=== PATIENT | female | born 1960 | race Caucasian/White ===

== ENCOUNTER 2023-06-27 15:11 | Emergency (ER) | payer BC, SELFPAY ==
[2023-06-27] VITALS (11 sets, daily range): BP systolic 118–164; BP diastolic 67–95; PULSE 68–85; RESP 20; TEMP 36.8; O2SAT 95–100; BMI 25.9
--- NOTE | 2023-06-27 15:46 | CRLHL7_ITS ---
For Patients: As a result of the Cures Act, medical imaging exams and procedure reports are released immediately into your electronic medical record. You may view this report before your referring provider. If you have questions, please contact your health care provider. Indication: Shortness of breath Comparison: None available. Technique: PA and lateral views of the chest Findings: There is no focal consolidation, effusion, or pneumothorax. The cardiomediastinal silhouette is within normal limits. The bony thorax is grossly intact. Impression: No acute cardiopulmonary abnormality. Dictated by David Nixon MD @ 06/27/2023 5:22:40 PM (Electronically Signed)
--- NOTE | 2023-06-27 15:58 | ED.GENADULT ---
HPI - General Adult General Chief complaint: Shortness of Breath/Dyspnea Stated complaint: Heavy chest, difficulty breathing-new Rx also Time Seen by Provider: 06/27/23 15:40 Source: patient Mode of arrival: ambulatory Limitations: no limitations History of Present Illness HPI narrative: Patient is a 63-year-old female coming into the ER with several concerns. 1. She would like ?better pain management for her dog bite that she sustained yesterday. She was given acetaminophen and she is also taking ibuprofen, nothing is helping. 2. Patient has chronic neck and back of the head pain: She tells me that she has stenosis and a ?slippy disc?. She tells me that she does not use any pain medication for this but she is requesting some today. She states that her pain has been worse over the last 2 weeks. She denies any new trauma. Pain is located in the back and head and goes down the neck, no new location of her pain just increased intensity. Lastly patient states that she also started having difficulty breathing this morning. She complains of a pressure in the center of her chest and difficulty taking deep breaths. She has a mild cough that comes and goes. She does have a history of COPD, uses an albuterol inhaler. Took her inhaler about an hour ago and she felt like it did not really help her much. Nothing seems to make it worse. It is not associated with moving or physical activity. She states that being here makes her feel better. Patient does smoke 10 cigarettes per day. Related Data Home Medications Medication Instructions Recorded Confirmed albuterol sulfate 90 mcg/actuation inhalation 07/06/22 07/06/22 aerosol inhaler buspirone 10 mg tablet 10 mg PO 07/06/22 07/06/22 cyclosporine 0.05 % eye drops in a drp ophthalmic (eye) 07/06/22 07/06/22 dropperette (Restasis) hydrocortisone 2.5 % topical cream g topical 07/06/22 07/06/22 hydroxyzine HCl 25 mg tablet 25 mg PO 07/06/22 07/06/22 levothyroxine 125 mcg tablet 125 mcg PO 07/06/22 07/06/22 lorazepam 0.5 mg tablet 0.5 mg PO 07/06/22 07/06/22 tacrolimus 0.1 % topical ointment topical 07/06/22 07/06/22 trazodone 50 mg tablet 50 mg PO 07/06/22 07/06/22 venlafaxine 75 mg capsule,extended mg PO 07/06/22 07/06/22 release 24 hr Allergies Allergy/AdvReac Type Severity Reaction Status Date / Time Cephalosporins Allergy Rash Verified 07/06/22 09:11 penicillin V Allergy Rash Verified 07/06/22 09:11 Sulfa (Sulfonamide Allergy Verified 07/06/22 09:11 Antibiotics) caress body soap Allergy Uncoded 07/06/22 09:11 Review of Systems Status of ROS: Reports: 10 or more systems reviewed and unremarkable except as noted in History and below [facility] Medical History Vitiligo ?L80 - Vitiligo (ICD-10) Low back pain ?M54.50 - Low back pain, unspecified (ICD-10) Asthma ?J45.909 - Unspecified asthma, uncomplicated (ICD-10) Carpal tunnel syndrome ?G56.00 - Carpal tunnel syndrome, unspecified upper limb (ICD-10) Hypertension ?I10 - Essential (primary) hypertension (ICD-10) Sleep apnea ?G47.30 - Sleep apnea, unspecified (ICD-10) Hypothyroid ?E03.9 - Hypothyroidism, unspecified (ICD-10) Surgical History H/O eye surgery ?Z98.890 - Other specified postprocedural states (ICD-10) History of carpal tunnel surgery of right wrist (11/02/16) ?Z98.890 - Other specified postprocedural states (ICD-10) Status post arthroscopy of right shoulder (11/02/16) ?Z98.890 - Other specified postprocedural states (ICD-10) History of carpal tunnel surgery of left wrist (06/07/17) ?Z98.890 - Other specified postprocedural states (ICD-10) Social History Smoking Status: Current every day smoker What tobacco products do you use: cigarettes Smoking packs per day: 5 Smoking cigarettes per day: 100.0 Do you use any of these nicotine containing products: None Second hand tobacco smoke exposure: Yes How often do you have a drink containing alcohol: monthly or less How often do you have six or more drinks on one occasion: Never AUDIT-C Alcohol total score: 1 Non-prescribed substance use: denies use service: No Exam Narrative: Exam Narrative: Well-nourished well-developed patient in no acute distress. Alert and oriented. Answers questions appropriately. Mood and affect are appropriate. Thoughts are goal oriented and rational. No tangential or magical thinking noted. Patient speaks in full sentences without needing to catch her breath. HEENT: Normocephalic atraumatic. Pupils are equally round reactive to light. Extraocular muscles are intact. Conjunctivae are moist without any icterus noted. Moist mucous membranes. Posterior pharynx is normal. Neck is soft without any lymphadenopathy or thyromegaly. No masses are appreciated. Neck is normal appearance. She has no acute tenderness palpation of the cervical spine. Cardiovascular: Heart is regular rate and rhythm S1 and S2 are present without any murmurs. Lungs: Clear to auscultation bilaterally no wheezes rhonchi or rales are appreciated. Patient takes deep breaths without any discomfort. Abdomen: Soft and nontender nondistended with normal bowel sounds. No guarding or rebound. No masses or organomegaly appreciated. Extremities: Bilateral lower extremities are without edema. Normal DP and PT pulses. Skin: Warm dry and intact. Patient does have a dog bite on the posterior right knee. She has stitches in place and 2 of the other puncture wounds are scabbed over. Const: Vital Signs, click to edit/add: Vital Signs - 24 hr 06/27/23 15:20 06/27/23 15:37 06/27/23 15:45 Temperature 98.3 F Pulse Rate 80 79 Pulse Rate [Pulse Oximeter] 85 Respiratory Rate 20 Blood Pressure Blood Pressure [Le ft Upper Arm] 164/95 H Pulse Oximetry 95 97 100 Oxygen Delivery Me thod Room Air 06/27/23 16:01 06/27/23 16:02 06/27/23 16:40 Temperature Pulse Rate 73 82 70 Pulse Rate [Pulse Oximeter] Respiratory Rate Blood Pressure 128/75 Blood Pressure [Le ft Upper Arm] Pulse Oximetry 98 99 98 Oxygen Delivery Me thod 06/27/23 16:45 06/27/23 17:00 06/27/23 17:32 Temperature Pulse Rate 68 71 Pulse Rate [Pulse Oximeter] Respiratory Rate Blood Pressure 118/95 H Blood Pressure [Le ft Upper Arm] Pulse Oximetry 100 97 Oxygen Delivery Me thod 06/27/23 18:04 06/27/23 18:31 Temperature Pulse Rate Pulse Rate [Pulse Oximeter] Respiratory Rate Blood Pressure 133/74 126/67 Blood Pressure [Le ft Upper Arm] Pulse Oximetry Oxygen Delivery Me thod Course Course ED Course: EKG, read by me, shows normal sinus rhythm with a pulse of 86. Troponin is normal. Chest x-ray, read by me, does not show any acute pathology. Lab work is unremarkable aside from a slightly elevated D-dimer 0.63. Because of this we did proceed with a chest CT PE protocol which was negative for PE, does show emphysema. Patient is relieved to hear this. And she is however very concerned about her continued neck and back pain. She is requesting oxycodone. I did look the patient up on the [place] pharmacy monitoring website, she does get lorazepam regularly but no narcotic pain medication. She gets 30 tablets every 2-3 months. We discussed at length today that she cannot mix these 2 medications together. Patient assures me that she will not. Vital Signs Vital signs: Initial Vital Signs Temperature 98.3 F 06/27/23 15:20 Temperature Source Temporal Artery Scan 06/27/23 15:20 Pulse Rate 85 06/27/23 15:20 Pulse Rhythm Regular 06/27/23 15:20 Respiratory Rate 20 06/27/23 15:20 Blood Pressure 164/95 H 06/27/23 15:20 Blood Pressure Mean 118 H 06/27/23 15:20 Blood Pressure Position Supine 06/27/23 15:20 Pulse Oximetry 95 06/27/23 15:20 Oxygen Delivery Method Room Air 06/27/23 15:20 Vital Signs Temperature 98.3 F 06/27/23 15:20 Pulse Rate 85 06/27/23 15:20 Respiratory Rate 20 06/27/23 15:20 Blood Pressure 164/95 H 06/27/23 15:20 Pulse Oximetry 95 06/27/23 15:20 Oxygen Delivery Method Room Air 06/27/23 15:20 Temperature 98.3 F 06/27/23 15:20 Pulse Rate 71 06/27/23 17:00 Respiratory Rate 20 06/27/23 15:20 Blood Pressure 126/67 06/27/23 18:31 Pulse Oximetry 97 06/27/23 17:00 Oxygen Delivery Method Room Air 06/27/23 15:20 Medical Decision Making MDM Narrative Medical decision making narrative: 63-year-old female with episode of difficulty breathing and chest pressure now asymptomatic. Workup today was entirely normal. I do recommend she follow up with primary care provider for further management. 2. Chronic neck and head pain. Patient states that she has to make an appointment with the spine clinic for a follow-up. She will receive 8 tablets of oxycodone today. Medical Records Medical records reviewed: Yes I reviewed the patient's medical records Lab Data Lab results reviewed: Yes I reviewed the patient's lab results Labs: Lab Results 06/27/23 06/27/23 06/27/23 Range/Units 15:47 16:07 16:07 WBC 6.59 (4.50-11.00) K/uL RBC 4.04 (4.00-5.20) m/uL Hgb 12.6 (12.0-16.0) gm/dL Hct 38.1 (33.0-51.0) % MCV 94 (80-100) fL MCH 31 (26-34) pg MCHC 33 (32-36) gm/dL RDW Coeff of Asim 12.0 (11.5-15.5) % Plt Count 271 (140-440) K/uL Neut % (Auto) 49.9 (42.0-72.0) % Lymph % (Auto) 39.2 (20-44) % Whitley % (Auto) 9.0 (0.0-11.0) % Eos % (Auto) 1.2 (0.0-7.0) % Baso % (Auto) 0.5 (0.0-3.0) % Neut # (Auto) 3.30 (1.7-7.0) K/uL Lymph # (Auto) 2.58 (0.90-2.90) K/uL Whitley # (Auto) 0.60 (0.00-0.90) K/UL Eos # (Auto) 0.08 (0.00-0.50) K/uL Baso # (Auto) 0.03 (0.00-0.30) K/uL Abs Immat Gran (auto) 0.01 (0.00-0.30) K/uL Imm/Tot Granulo (auto) 0.2 % ESR 23 H (2-20) mm/hr D-Dimer Quant (PE/DVT) 0.61 H (0.00-0.50) ug/ml Sodium 140 (135-149) mmol/L Potassium 3.5 L (3.6-5.1) mmol/L Chloride 102 (96-114) mmol/L Carbon Dioxide 26 (20-32) mmol/L Anion Gap 12 (7-15) mEq/L BUN 12 (7-30) mg/dL Creatinine 0.7 (0.5-1.5) mg/dL Estimated Creat Clear 46.40 Estimated GFR 96 ml/min Glucose 103 (60-115) mg/dL Lactate 0.8 (0.5-1.9) mmol/L Calcium 9.2 (8.4-10.6) mg/dL Magnesium 2.1 (1.5-2.6) mg/dL Total Bilirubin 1.0 (0.1-1.5) mg/dL Direct Bilirubin 0.0 (0.0-0.5) mg/dL AST 35 (12-35) U/L ALT 25 (4-35) U/L Alkaline Phosphatase 80 (40-150) U/L Troponin I < 0.01 L Cancelled (0.01-0.04) ng/mL C-Reactive Protein 0.5 (0.5-1.0) mg/dL Total Protein 7.5 (6.0-8.3) g/dL Albumin 4.5 (3.3-5.0) g/dL SARS-CoV-2 (PCR) Negative SARS-CoV-2 (Negative) Influenza Type A (PCR) Negative PCR FLU A (Negative) Influenza Type B (PCR) Negative PCR FLU B (Negative) RSV (PCR) Negative PCR RSV (Negative) POC Troponin I 0.01 (0.01-0.04) ng/ml Imaging Data CT scan - chest: Attestation: I have reviewed the pertinent imaging results. Radiologist's impression: TECHNIQUE: CT chest with i.v. contrast using pulmonary angiographic technique. Coronal and sagittal reformats were obtained. CONTRAST: 95 mL Isovue 370 COMPARISON: None FINDINGS: Cardiovascular: The pulmonary arteries are unremarkable in enhancement with no evidence of acute pulmonary embolism. The heart has an unremarkable appearance and size. No sign of aneurysm in the thoracic aorta. Mediastinum: No mass or adenopathy seen. Lung: Moderate centrilobular emphysema seen within the right upper lobe and mild centrilobular emphysema seen in the left upper lobe. Pleura and pericardium: No sign of pleural effusion seen. No significant pericardial effusion is present. Chest wall and axilla: No mass or adenopathy seen. Bone: Unremarkable for age. Upper abdomen: Unremarkable. IMPRESSION: 1. No CT evidence of acute pulmonary emboli seen. Chest x-ray: Attestation: I have reviewed the pertinent imaging results. Radiologist's impression: Technique: PA and lateral views of the chest Findings: There is no focal consolidation, effusion, or pneumothorax. The cardiomediastinal silhouette is within normal limits. The bony thorax is grossly intact. Impression: No acute cardiopulmonary abnormality. ECG Data Attestation: I personally reviewed and interpreted this ECG as follows: Discharge Plan Discharge Clinical Impression: Headache, Atypical chest pain, Neck pain Patient Disposition: Home, Self-Care Condition: Stable Additional Instructions: Your workup today did not show any acute cause of your chest pressure or shortness of breath that you had earlier today. I do recommend you follow-up with your primary care provider this coming week for a checkup and further management. As far as your head and neck pain you will be sent home with 8 tablets of oxycodone today. There is Tylenol in these medications, you should not take more than a combined total of 3,000 mg of acetaminophen, also known as Tylenol, in a 24 hour period. Narcotic pain medications, like the once you are getting today can cause constipation and dizziness with increased risk of fall. Be very careful when taking his medications and under no circumstances should do mix this medication with your lorazepam like we discussed today. Pain medications sent to [facility]. Prescriptions: No Action cyclosporine [Restasis] 0.05 % dropperette ophthalmic (eye) Patient Comments: Instill 1 drop both eyes morning and night levothyroxine 125 mcg tablet 125 mcg PO Patient Comments: Take 1 Tablet (125 mcg) by mouth before breakfast. lorazepam 0.5 mg tablet 0.5 mg PO Patient Comments: TAKE ONE TABLET BY MOUTH DAILY NEEDED FOR ANXIETY, MUST LAST 30 DAYS trazodone 50 mg tablet 50 mg PO Patient Comments: Take 0.5 Tablet (25 mg) by mouth at bedtime if needed for Sleep. venlafaxine 75 mg capsule,extended release 24hr PO Patient Comments: TAKE 1 CAPSULE BY MOUTH ONE TIME DAILY albuterol sulfate 90 mcg/actuation HFA aerosol inhaler inhalation Patient Comments: INHALE ONE OR TWO PUFFS BY MOUTH EVERY FOUR HOURS WHILE AWAKE hydroxyzine HCl 25 mg tablet 25 mg PO Patient Comments: TAKE ONE TABLET BY MOUTH EVERY SIX HOURS NEEDED FOR FOR ITCHING tacrolimus 0.1 % ointment topical Patient Comments: apply topically to the face twice daily hydrocortisone 2.5 % cream topical buspirone 10 mg tablet 10 mg PO Patient Comments: TAKE 1 TABLET BY MOUTH TWICE DAILY Follow Up/Referrals: Claudia Joe DO [Primary Care Provider] - [facility] Alone [facility]
[2023-06-27 16:25] LABS: Lactate* 0.8 mmol/L (0.5-1.9)
[2023-06-27 16:29] LABS: Basophils Absolute Auto 0.03 K/uL (0.00-0.30); Basophils Percent Auto 0.5 % (0.0-3.0); Eosinophils Absolute Auto 0.08 K/uL (0.00-0.50); Eosinophils Percent Auto 1.2 % (0.0-7.0); Hematocrit 38.1 % (33.0-51.0); Hemoglobin* 12.6 gm/dL (12.0-16.0); Immature Granulocytes Abs Auto 0.01 K/uL (0.00-0.30); Immature Granulocytes Pct Auto 0.2 %; Lymphocytes Absolute Auto 2.58 K/uL (0.90-2.90); Lymphocytes Percent Auto 39.2 % (20-44); Mean Corpuscular HGB Conc 33 gm/dL (32-36); Mean Corpuscular Hemoglobin 31 pg (26-34); Mean Corpuscular Volume 94 fL (80-100); Neutrophils Percent Auto 49.9 % (42.0-72.0); Platelet Count* 271 K/uL (140-440); Red Blood Count 4.04 m/uL (4.00-5.20); White Blood Count* 6.59 K/uL (4.50-11.00)
[2023-06-27 16:29] LABS: Troponin, Point-of-Care* 0.01 ng/ml (0.01-0.04)
[2023-06-27 16:34] LABS: Slide Review Reflex No
[2023-06-27] MEDS: IPRAT-ALBUT 0.5-2.5 MG/3 ML NEB 1 NEB IH (16:44)
[2023-06-27 16:52] LABS: Albumin* 4.5 g/dL (3.3-5.0); Chloride* 102 mmol/L (96-114); Potassium* 3.5 mmol/L (3.6-5.1); Sodium* 140 mmol/L (135-149)
[2023-06-27 16:54] LABS: Creatinine* 0.7 mg/dL (0.5-1.5); Estimated Glomerular Filt Rate 96 ml/min
[2023-06-27 16:55] LABS: Alanine Aminotransferase* 25 U/L (4-35); Alkaline Phosphatase* 80 U/L (40-150); Anion Gap 12 mEq/L (7-15); Aspartate Amino Transferase* 35 U/L (12-35); Blood Urea Nitrogen* 12 mg/dL (7-30); Calcium* 9.2 mg/dL (8.4-10.6); Carbon Dioxide* 26 mmol/L (20-32); Glucose* 103 mg/dL (60-115); Total Protein* 7.5 g/dL (6.0-8.3)
[2023-06-27 16:56] LABS: Magnesium* 2.1 mg/dL (1.5-2.6)
[2023-06-27 16:58] LABS: C Reactive Protein* 0.5 mg/dL (0.5-1.0)
[2023-06-27] MEDS: KETOROLAC 30 MG/ML inj IVP (17:00)
[2023-06-27 17:07] LABS: D Dimer Quantitative* 0.61 ug/ml (0.00-0.50)
[2023-06-27 17:08] LABS: Troponin I* < 0.01 ng/mL (0.01-0.04)
[2023-06-27 17:18] LABS: PCR FLU A Negative PCR FLU A (Negative); PCR FLU B Negative PCR FLU B (Negative); PCR RSV Negative PCR RSV (Negative)
[2023-06-27 17:20] LABS: SARS PCR* Negative SARS-CoV-2 (Negative)
[2023-06-27 17:22] LABS: Erythrocyte SedimentationRate* 23 mm/hr (2-20)
--- NOTE | 2023-06-27 17:30 | CRLHL7_ITS ---
For Patients: As a result of the Century Cures Act, medical imaging exams and procedure reports are released immediately into your electronic medical record. You may view this report before your referring provider. If you have questions, please contact your health care provider. INDICATION: Chest pain TECHNIQUE: CT chest with i.v. contrast using pulmonary angiographic technique. Coronal and sagittal reformats were obtained. CONTRAST: 95 mL Isovue 370 COMPARISON: None FINDINGS: Cardiovascular: The pulmonary arteries are unremarkable in enhancement with no evidence of acute pulmonary embolism. The heart has an unremarkable appearance and size. No sign of aneurysm in the thoracic aorta. Mediastinum: No mass or adenopathy seen. Lung: Moderate centrilobular emphysema seen within the right upper lobe and mild centrilobular emphysema seen in the left upper lobe. Pleura and pericardium: No sign of pleural effusion seen. No significant pericardial effusion is present. Chest wall and axilla: No mass or adenopathy seen. Bone: Unremarkable for age. Upper abdomen: Unremarkable. IMPRESSION: 1. No CT evidence of acute pulmonary emboli seen. Dictated by Jesus Gant MD @ 06/27/2023 6:48:58 PM Please note that all CT scans at this facility use dose modulation, iterative reconstruction, and/or weight-based dosing when appropriate to reduce radiation dose to as low as reasonably achievable. Dictated by: Jesus Gant MD @ 06/27/2023 18:50:53 (Electronically Signed)
== END 2023-06-27 19:36 | disposition home or self-care (01) ==
PROVIDERS: Emergency Provider Family Medicine; PCP Family Medicine
DX: R51.9 Headache, unspecified (principal); R07.9 Chest pain, unspecified; M54.2 Cervicalgia
CPT/HCPCS: 36415; 71046; 71275; 80048; 80076; 83605; 83735; 84484; 85025; 85379; 85651; 86140; 87631; 93005; 94640; 94761; 96374; 99284; 99285; J1885; Q9967

== ENCOUNTER 2023-07-12 18:21 | Emergency (ER) | payer BC, SELFPAY ==
[2023-07-12 18:29] VITALS: BP 125/73; PULSE 64; RESP 18; TEMP 36.2; O2SAT 100; BMI 25.9
--- NOTE | 2023-07-12 19:02 | ED_ITS ---
HPI - General Adult General Chief complaint: Extremity Pain/Injury, Lower Stated complaint: Dog bite 06/26 R leg-PCP worried abt sepsis Time Seen by Provider: 07/12/23 18:25 History of Present Illness HPI narrative: This patient is a 63-year-old female who was bit by a dog 17 days ago and has been on 3 different antibiotics since then. This is an injury that occurred behind her right knee. She comes in today wondering if some swelling and discomfort in her left knee is caused by the medications that she is taking. She does not report any other injury event. She has not had any fevers. She states that she did have a remote history of similar symptoms in her left knee and remembers hearing about a [place] cyst. She states that she is currently taking Levaquin and Flagyl for the past 4 days and her symptoms related to the dog bite have improved significantly. Prior to this she was taking doxycycline. Related Data Home Medications Medication Instructions Recorded Confirmed albuterol sulfate 90 mcg/actuation inhalation 07/06/22 07/06/22 aerosol inhaler buspirone 10 mg tablet 10 mg PO 07/06/22 07/06/22 cyclosporine 0.05 % eye drops in a drp ophthalmic (eye) 07/06/22 07/06/22 dropperette (Restasis) hydrocortisone 2.5 % topical cream g topical 07/06/22 07/06/22 hydroxyzine HCl 25 mg tablet 25 mg PO 07/06/22 07/06/22 levothyroxine 125 mcg tablet 125 mcg PO 07/06/22 07/06/22 lorazepam 0.5 mg tablet 0.5 mg PO 07/06/22 07/06/22 tacrolimus 0.1 % topical ointment topical 07/06/22 07/06/22 trazodone 50 mg tablet 50 mg PO 07/06/22 07/06/22 venlafaxine 75 mg capsule,extended mg PO 07/06/22 07/06/22 release 24 hr levofloxacin 750 mg tablet 750 mg PO DAILY 07/12/23 07/12/23 metronidazole 500 mg tablet 500 mg PO 3XD 07/12/23 07/12/23 Allergies Allergy/AdvReac Type Severity Reaction Status Date / Time Cephalosporins Allergy Rash Verified 07/06/22 09:11 penicillin V Allergy Rash Verified 07/06/22 09:11 Sulfa (Sulfonamide Allergy Verified 07/06/22 09:11 Antibiotics) caress body soap Allergy Uncoded 07/06/22 09:11 Review of Systems Status of ROS: Reports: 10 or more systems reviewed and unremarkable except as noted in History and below Narrative: Constitutional: No fevers, no weight gain or loss. Eyes: No discharge. No vision changes. HENT: No congestion, no sore throat, no ear pain. Cardiovascular: No chest pain, no palpitations. Respiratory: No shortness of breath, no wheezes, no cough. Gastrointestinal: No abdominal pain, no vomiting, no diarrhea. Genitourinary: No dysuria, no hematuria. Musculoskeletal: Normal range of motion. She reports some neck pain related to a fall that occurred last winter. She is seeing a spine clinic regarding this. Skin: No rashes, no pruritis. Neurological: No dizziness, weakness, sensory change, speech change. Endo/Heme/Allergies: No bruising or bleeding. No polydipsia. Pysch: no suicidality, no anxiety, no insomnia. All other systems reviewed and are negative. [facility] Medical History Vitiligo ?L80 - Vitiligo (ICD-10) Low back pain ?M54.50 - Low back pain, unspecified (ICD-10) Asthma ?J45.909 - Unspecified asthma, uncomplicated (ICD-10) Carpal tunnel syndrome ?G56.00 - Carpal tunnel syndrome, unspecified upper limb (ICD-10) Hypertension ?I10 - Essential (primary) hypertension (ICD-10) Sleep apnea ?G47.30 - Sleep apnea, unspecified (ICD-10) Hypothyroid ?E03.9 - Hypothyroidism, unspecified (ICD-10) Surgical History H/O eye surgery ?Z98.890 - Other specified postprocedural states (ICD-10) History of carpal tunnel surgery of right wrist (11/02/16) ?Z98.890 - Other specified postprocedural states (ICD-10) Status post arthroscopy of right shoulder (11/02/16) ?Z98.890 - Other specified postprocedural states (ICD-10) History of carpal tunnel surgery of left wrist (06/07/17) ?Z98.890 - Other specified postprocedural states (ICD-10) Social History Smoking Status: Current every day smoker What tobacco products do you use: cigarettes Smoking packs per day: 5 Smoking cigarettes per day: 100.0 Do you use any of these nicotine containing products: None Second hand tobacco smoke exposure: Yes How often do you have a drink containing alcohol: monthly or less How often do you have six or more drinks on one occasion: Never AUDIT-C Alcohol total score: 1 Non-prescribed substance use: denies use service: No Exam Narrative: Exam Narrative: Constitutional: Well-developed, well-nourished, no acute distress. HEENT: Normocephalic, atraumatic. Neck: Normal range of motion. Nontender. Supple. Heart: Intact distal pulses. Lungs: No chest discomfort. No wheezes, rhonchi, or rales. Abdomen: Nontender. Back: Normal range of motion. Extremities: Normal range of motion. Three puncture wounds in the posterior aspect of the right knee from a dog bite that occurred 2 and half weeks ago. There is some mild swelling but no significant erythema or warmth. There is no drainage from the wounds that appear to be healing properly. Skin: Intact. No rash. Warm. No erythema or pallor. Neurologic: No altered sensation. No weakness. Alert and oriented. Psychiatric: No suicidality. No anxiety or depression. No insomnia. Nursing notes and vitals signs are reviewed. Const: Vital Signs, click to edit/add: Vital Signs - 24 hr 07/12/23 18:29 Temperature 97.1 F L Pulse Rate [Pulse Oximeter] 64 Respiratory Rate 18 Blood Pressure [Ri ght Upper Arm] 125/73 Pulse Oximetry 100 Oxygen Delivery Me thod Room Air Course Vital Signs Vital signs: Initial Vital Signs Temperature 97.1 F L 07/12/23 18:29 Temperature Source Temporal Artery Scan 07/12/23 18:29 Pulse Rate 64 07/12/23 18:29 Respiratory Rate 18 07/12/23 18:29 Blood Pressure 125/73 07/12/23 18:29 Blood Pressure Mean 90 07/12/23 18:29 Pulse Oximetry 100 07/12/23 18:29 Oxygen Delivery Method Room Air 07/12/23 18:29 Vital Signs Temperature 97.1 F L 07/12/23 18:29 Pulse Rate 64 07/12/23 18:29 Respiratory Rate 18 07/12/23 18:29 Blood Pressure 125/73 07/12/23 18:29 Pulse Oximetry 100 07/12/23 18:29 Oxygen Delivery Method Room Air 07/12/23 18:29 Temperature 97.1 F L 07/12/23 18:29 Pulse Rate 64 07/12/23 18:29 Respiratory Rate 18 07/12/23 18:29 Blood Pressure 125/73 07/12/23 18:29 Pulse Oximetry 100 07/12/23 18:29 Oxygen Delivery Method Room Air 07/12/23 18:29 Medical Decision Making MDM Narrative Medical decision making narrative: This patient comes in with concern about some mild swelling in her left knee. She arrives with normal vital signs. There was no particular injury event except that she did injure her right knee from a dog bite. She has improved on her current medications and arrives with normal vital signs. I did discuss lab and imaging options with the patient but indicated these are not really indicated given her circumstances and concerns. She is reassured regarding her answer to the question that the medication is not likely causing symptoms in her opposite knee. I encouraged her to continue current plans. She has plans also to follow-up with a spine clinic regarding her neck from a fall that occurred last winter. Discharge Plan Discharge Clinical Impression: Feared condition not demonstrated, Dog bite Patient Disposition: Home, Self-Care Condition: Stable Additional Instructions: Continue current plans. Use medications as prescribed. Follow up with MD return if worsening. Prescriptions: No Action cyclosporine [Restasis] 0.05 % dropperette ophthalmic (eye) Patient Comments: Instill 1 drop both eyes morning and night levothyroxine 125 mcg tablet 125 mcg PO Patient Comments: Take 1 Tablet (125 mcg) by mouth before breakfast. lorazepam 0.5 mg tablet 0.5 mg PO Patient Comments: TAKE ONE TABLET BY MOUTH DAILY NEEDED FOR ANXIETY, MUST LAST 30 DAYS trazodone 50 mg tablet 50 mg PO Patient Comments: Take 0.5 Tablet (25 mg) by mouth at bedtime if needed for Sleep. venlafaxine 75 mg capsule,extended release 24hr PO Patient Comments: TAKE 1 CAPSULE BY MOUTH ONE TIME DAILY albuterol sulfate 90 mcg/actuation HFA aerosol inhaler inhalation Patient Comments: INHALE ONE OR TWO PUFFS BY MOUTH EVERY FOUR HOURS WHILE AWAKE hydroxyzine HCl 25 mg tablet 25 mg PO Patient Comments: TAKE ONE TABLET BY MOUTH EVERY SIX HOURS NEEDED FOR FOR ITCHING tacrolimus 0.1 % ointment topical Patient Comments: apply topically to the face twice daily hydrocortisone 2.5 % cream topical buspirone 10 mg tablet 10 mg PO Patient Comments: TAKE 1 TABLET BY MOUTH TWICE DAILY metronidazole 500 mg tablet 500 mg PO 3XD levofloxacin 750 mg tablet 750 mg PO DAILY Follow Up/Referrals: Claudia Joe DO [Primary Care Provider] - Stand Alone Forms: [facility]
--- OUTSIDE RECORDS SUMMARY | 2023-07-12 19:16 | XMS_ITS | Patient Health Record ---
Author Name Unknown Organization [facility] Address [address] [place] [address] [address] [place] [address] Care Team Providers Care Extension Specialist Name Role Phone Zainab Lopez MD Primary Care Provider Ilya Basurto Unavailable [phone] Aiden Montgomery Unavailable Unavailable Forest Baxter Unavailable [phone] ALLERGIES Allergen (clinical drug ingredient) Drug/Non Drug Allergy documented on EMR Reaction Allergy Type Onset Date Status Medicinal cephalosporin and acting as antibacterial agent (FN) Cephalosporins rash Drug Allergy Active Penicillin rash Drug Allergy Active Substance with sulfonamide structure and antibacterial mechanism of action (substance) Sulfa Antibiotics swelling Drug Allergy Active REASON FOR REFERRAL No Information MEDICATIONS Medication SIG (Take, Route, Frequency, Duration) Notes Start Date End Date Status Meloxicam 15 MG 1 tablet Orally Once a day for 30 days 06/28/2023 Active Baclofen 10 MG 0.5-1 tablet as needed Orally Three times a day for 30 days 06/28/2023 Active Levothyroxine Sodium 50 MCG 1 tablet in the morning on an empty stomach Orally Once a day Active oxyCODONE-Acetaminophe n 5-325 MG 1 tablet as needed Orally three times a day as needed for 4 days For post procedural pain 07/09/2023 Active Doxycycline 100mg 2x/day Activ e metroNIDAZOLE 500 MG 1 tablet Orally Three times a day Active SOCIAL HISTORY Sex Assigned At : Social History Observation Description Sex Assigned At Unknown PROBLEMS Problem Type ICD Code Onset Dates Problem Status W/U Status Risk SNOMED Code Notes Problem Other chronic pain (G89.29) Active confirmed Chronic pain (08455665) Problem Myositis, unspecified (M60.9) Active confirmed Myositis (38381599) Problem Neck pain (M54.2) Active confirmed Neck pain (45712487) Problem Cervical spondylosis (M47.812) Active confirmed Cervical spondylosis (431924392) VITAL SIGNS Blood pressure diastolic 68 mm Hg 06/28/2023 Height 5ft 3in in 06/28/2023 Blood pressure systolic 116 mm Hg 06/28/2023 Weight 147.6 lbs 06/28/2023 BMI 26.14 kg/m2 06/28/2023 PROCEDURES Procedure Date Ordered Date Performed Result Body Sit e Intervention: 06/26/2023 07/02/2023 sched 07/09 Intervention: 2 07/11/2023 bcbs oos rfa Encounters Encounter Location Date Provider Diagnosis [facility] [address] [place] [address] 06/11/2023 Forest Baxter [facility] [address] [place] [address] [address] [place] [address] 06/24/2023 Forest Baxter [address] [facility] [address] [place] [address] 06/25/2023 Forest Baxter Cervical spondylosis M47.812 [facility] [address] [place] [address] 06/28/2023 Ilya Pedro Luis Cervical spondylosis M47.812 ; Neck pain M54.2 ; Myositis, unspecified M60.9 and Other chronic pain G89.29 [facility] [address] [place] [address] [address] [place] [address] 07/08/2023 Forest Baxter [address] [facility] [address] [place] [address] 07/09/2023 Forest Baxter Cervical spondylosis M47.812 ASSESSMENTS Encounter Date Diagnosis Assessment Notes Treatment Notes Treatment Clinical Notes 06/25/2023 Cervical spondylosis (ICD-10 - M47.812) 06/28/2023 Neck pain (ICD-10 - M54.2) 06/28/2023 Cervical spondylosis (ICD-10 - M47.812) 07/09/2023 Cervical spondylosis (ICD-10 - M47.812) 06/28/2023 Myositis, unspecified (ICD-10 - M60.9) 06/28/2023 Other chronic pain (ICD-10 - G89.29) Ivanna presents to the clinic for an evaluation regarding her chronic neck pain. I have reviewed her symptoms and current medications as well as her most recent imaging. I checked the [facility] database and I did not find any inconsistencies. I will continue with a treatment plan consisting of conservative therapy. At this time I do recommend she continue with the cervical MBB/RFA work up. I also believe she is a good candidate for cervical TPIs. These were performed in clinic today. Regarding medications, I will start her on Meloxicam and Baclofen for improved symptom relief. This treatment plan was reviewed with Ivanna, and she was agreeable. She will return as needed for further evaluation. I will continue to monitor her progress, adjusting her treatment plan as necessary. Plan:1. Reviewed cervical CT + MRI2. Proceed with second cervical MBBs3. Cervical TPIs completed in clinic today4. Start Meloxicam 15mg QD 5. Start Baclofen 10mg 0.5-1 TID PRN6. Follow up as needed Discharge instructions reviewed verbally. Discussed the risks/benefits of prescribed medication. The patient was instructed to return to the office as scheduled and call with any questions, problems or concerns. 06/28/2023 Other I, Alessandro August , am serving as a scribe to document services personally performed by Ilya Cloud MD, based upon my observations and the provider's statements to me. All documentation has been reviewed by the aforementioned doctor prior to being entered into the official medical record. I, Ilya Cloud MD attest that the above named individual is acting in scribe capacity, has observed my performance of the services and has documented them in accordance with my direction. The documentation recorded by the scribe accurately reflects the service I personally performed and the decisions made by me. Thank you very much Aiden for kindly referring Ivanna to our practice. It is a pleasure to participate in her care. Please feel free to contact me with any questions or concerns. PLAN OF TREATMENT Pending Test Test Name Order Date Intervention: 2 07/11/2023 Insurance Providers Payer Name Payer Address Payer Phone Subscriber Number Group Number Insured Name Patient Relationship to Insured Coverage Start Date Coverage End Date [employer] Out of State [address] [address] [place] [address] [id number] Ivanna Hirsch Self - patient is the insured MEDICAL (GENERAL) HISTORY Medical History History ICD Code Headaches Ear Pressure/hearing Loss migraines Thyroid Problems Anxiety COPD Surgical History Surgery Date(Month/Year) Upper Eyelid surgery Right Shoulder repair Bilateral Carpal Tunnel
[2023-07-12 19:32] VITALS: BP 125/73; PULSE 64; RESP 18; TEMP 36.2
== END 2023-07-12 19:33 | disposition home or self-care (01) ==
LOC: ED 19:14
PROVIDERS: Emergency Provider Emergency Medicine Emergency Medical Services; PCP Family Medicine
DX: R22.42 Localized swelling, mass and lump, left lower limb (principal); S81.051A Open bite, right knee, initial encounter
CPT/HCPCS: 99283; 99284